=== PATIENT | female | born 1990 | race African-American/Black ===

== ENCOUNTER 2020-11-29 16:22 | Emergency (ER) | payer SELFPAY ==
[~2020-11-29] VITALS: Ht 165.1 cm; Wt 65.0 kg
[2020-11-29 18:11] VITALS: BP 109/50
--- NOTE | 2020-11-29 18:49 | RAD ---
Three-view left wrist dated 11/29/2020. No comparison available. Clinical data indication: Pain after injury. FINDINGS: 3 views left wrist show normal bony alignment. No displaced fracture. No acute osseous or articular a bnormality. No periostitis or bone destruction. IMPRESSION: No acute findings. Electronically signed by: Scooter Silver MD (11/29/2020 6:47 PM) [id number]
--- NOTE | 2020-11-29 19:01 | PHYS DOC ---
Past Medical History Past Medical History: No Pertinent History Past Surgical History: No Surgical History Smoking Status: Never Smoker Alcohol Use: None General Adult EDM: Chief Complaint: WRIST PAIN HPI: HPI: 30 yo F has medical history of PCOS with no routine primary care or STUDENT COUNSELLOR follow-up, presents to the ED with complaints of waking up Sunday morning with left upper extremity arm numbness, shooting pains from her left shoulder to her left hand with dorsal wrist/phalange 1-4 swelling, cannot recall any specific trauma. Is right-hand dominant. States the swelling in her fingers and wrist have decreased but now has localized pain to her dorsal left wrist, worsening with flexion and extension. No prior trauma to this extremity. No history of head or neck injuries, no further neuropathy. Cannot recall if she injured her neck/slept on it wrong. Review of Systems: Review of Systems: Constitutional: Denies fever or chills. [] Eyes: Denies change in visual acuity. [] HENT: Denies nasal congestion or sore throat. [] Respiratory: Denies cough or shortness of breath. [] Cardiovascular: Denies chest pain or edema. [] GI: Denies abdominal pain, nausea, vomiting, bloody stools or diarrhea. [] : Denies dysuria or hematuria Musculoskeletal: Denies back pain or CVA tenderness Integument: Denies crepitus or diaphoresis Neurologic: Denies headache, focal weakness or sensory changes. [] Endocrine: Denies polyuria or polydipsia. [] Lymphatic: Denies swollen glands. [] Psychiatric: Denies depression or anxiety. [] Heart Score: Risk Factors: Risk Factors: DM, Current or recent (<one month) smoker, HTN, HLP, family his tory of CAD, obesity. Risk Scores: Score 0 - 3: 2.5% MACE over next 6 weeks - Discharge Home Score 4 - 6: 20.3% MACE over next 6 weeks - Admit for Clinical Observation Score 7 - 10: 72.7% MACE over next 6 weeks - Early Invasive Strategies Allergies: Allergies: Allergies Coded Allergies Type Severity Reaction Last Updated Verified No Known Drug Allergies 11/29/20 No Physical Exam: PE: Constitutional: Well developed, well nourished, no acute distress, non-toxic appearance. HENT: No midline neck pain, normocephalic, atraumatic, Eyes: EOMI, conjunctiva normal, no discharge. Neck: Normal range of motion, supple, Cardiovascular: S1/2 present, regular rhythm Lungs & Thorax: Speaking in full sentences, bilateral equal chest rise, no tachypnea or increased work of breathing Abdomen: soft, no tenderness, Skin: Warm, dry, cap refill less than 1 second Back: No midline tenderness, Extremities: No tenderness, no cyanosis, no joint swelling or decreased range of motion, 2x3 cm area of swelling over dorsal lateral left wrist with mild erythema, no pain in snuffbox, equal radial pulses, no pain over lunate Neurologic: Alert and oriented X 3, normal motor function, normal sensory function, no focal deficits noted. [] Psychologic: Affect normal, judgement normal, mood normal. [] Current Patient Data: Vital Signs: Vital Signs Date Time Temp Pulse Resp B/P (MAP) Pulse Ox O2 Delivery O2 Flow Rate FiO2 11/29/20 18:11 97.4 75 16 109/50 (69) 99 Room Air 97.4 EKG: EKG: [] Radiology/Procedures: Radiology/Procedures: []IMAGING REPORT Signed PATIENT: FIGUEROA URBANO ACCOUNT: [id number] : 1990 LOCATION: ER AGE: 30 SEX: F EXAM STATUS: REG ER ORD. PHYSICIAN: SCOOTER SHANNON APRN REASON: left wrist pain, swelling x1 day. no recent injury PROCEDURE: WRIST 3V LEFT Three-view left wrist dated 11/29/2020. No comparison available. Clinical data indication: Pain after injury. FINDINGS: 3 views left wrist show normal bony alignment. No displaced fracture. No acute osseous or articular abnormality. No periostitis or bone destruction. IMPRESSION: No acute findings. Electronically signed by: Scooter Mohamud MD (11/29/2020 6:47 PM) [id number] DICTATED and SIGNED BY: SCOOTER MOHAMUD MD DATE: 11/29/20 [id number] 0 Course & Med Decision Making: Course & Med Decision Making Pertinent Labs and Imaging studies reviewed. (See chart for details) Concern for atraumatic dorsal left wrist swelling with mild erythema, concern for early cellulitis, will cover with Keflex. Patient also complained of left upper extremity neuropathic pain that will be treated with Flexeril. Patient afebrile, jqmj-[id number]-[id number] suspicion for avascular necrosis, osteomyelitis or other life or limb threatening processes. Will discharge home with strict ED return precautions were given for paralysis, joint swelling, worsening rash, fever or pain out of proportion. Encouraged urgent outpatient follow-up with PMD and STUDENT COUNSELLOR and orthopedic surgery as an outpatient. Life-threatening processes were considered but are low suspicion at this time, given history, physical exam and ED workup. Pt was educated on all prescription medications and adverse effects. All patient's questions were answered and pt was stable at time of discharge. Life/limb-threatening differential includes but is not limited to, trauma (fracture, dislocation, laceration, compartment syndrome, tendon or ligament injury), neurovascular injury or deficit, infection (osteomyelitis, abscess, cellulitis, septic arthritis, necrotizing fasciitis), deep vein thrombosis, renal/cardiac/liver disease, medication adverse effect, lymphedema/anasarca, vascular insufficiency or malignancy, I spoken with the patient and her caregivers. I explained the patient's condition, diagnoses and treatment plan based on the information available to me at this time. I have answered the patient and her caregiver's questions and addressed any concerns. The patient and her caregivers have a good understanding of patient's diagnosis, condition and treatment plan as can be expected at this point. Vital signs have been stable. Patient's condition is stable and appropriate for discharge from the emergency department. Patient will pursue further outpatient evaluation with primary care physician or other designated or consulting physician as outlined in the discharge instructions. The patient and/or caregivers are agreeable to this plan of care and follow-up instructions have been explained in detail. The patient and/or caregivers have received these instructions in written form and have expressed an understanding of the discharge instructions. The patient and/or caregivers are aware that any significant change of condition or worsening of symptoms should prompt immediate return to this or the closest emergency department or call to 911. Almaz Disclaimer: Almaz Disclaimer: This electronic medical record was generated, in whole or in part, using a voice recognition dictation system. Departure Departure Impression: Primary Impression: Wrist pain, left Additional Impressions: Neuropathy of left upper extremity Cellulitis of left wrist Disposition: 01 DC HOME SELF CARE/HOMELESS Condition: STABLE Referrals: NO PCP (PCP) FOLLOW UP WITH FAMILY MEDICINE: Family Medicine Address: [address] [place] [address] Patient Instructions: Cellulitis, Pain, Neuropathic Additional Instructions: FOLLOW UP WITH ORTHOPEDICS: Orthopaedic Sports Medicine Orthopaedic Surgery [facility] Address: [address] [place], [address] [place] [address] FOLLOW UP WITH STUDENT COUNSELLOR: [facility] Address: [address] [place] [address] EMERGENCY DEPARTMENT GENERAL DISCHARGE INSTRUCTIONS Thank you for coming to [facility] Emergency Department (ED) today and trusting us with you care. We trust that you had a positive experience in our Emergency Department. If you wish to speak to the department management, you may call the Director at [phone]. YOUR FOLLOW UP INSTRUCTIONS ARE FOLLOWS: 1. Do you have a private Doctor? If you do not have a private doctor, please ask for a resource list of physicians or clinics that may be able to assist you with follow up care. 2. The Emergency Physicain has interpreted your x-rays. The X-Ray specialist will also review them. If there is a change in the findings, you will be notified in 48 hours when at all possible. 3. A lab test or culture has been done, your results will be reviewed and you will be notified if you need a change in treatment. ADDITIONAL INSTRUCTIONS AND INFORMATION: 1. Your care today has been supervised by a physician who is specially trained in emergency care. Many problems require more than one evaluation for a complete diagnosis and treatment. We recommend that you schedule your follow up appointment as recommended to ensure complete treatment of you illness or injury. If you are unable to obtain follow up care and continue to have a problem, or if your condition worsens, we recommend that you return to the ED. 2. We are not able to safely determine your condition over the phone nor are we able to give sound medical advice over the phone. For these safety reasons, if you call for medical advice we will ask you to come to the ED for further evaluation. 3. If you have any questions regarding these discharge instructions please call the ED at [phone]. SAFETY INFORMATION: In the interest of safety, wellness, and injury prevention; we encourage you to wear your sealbelt, if you smoke; quite smoking, and we encourage family to use a protective helmet for bicycling and other sporting events that present an increased risk for head injury. IF YOUR SYMPTOMS WORSEN OR NEW SYMPTOMS DEVELOP, OR YOU HAVE CONCERNS ABOUT YOUR CONDITION; OR IF YOUR CONDITION WORSENS WHILE YOU ARE WAITING FOR YOUR FOLLOW UP APPOINTMENT; EITHER CONTACT YOUR PRIMARY CARE DOCTOR, THE PHYSICIAN WHOSE NAME AND NUMBER YOU WERE GIVEN, OR RETURN TO THE ED IMMEDIATELY. Scripts Cyclobenzaprine Hcl (CYCLOBENZAPRINE HCL) 10 Mg Tablet 1 TAB PO TID for 4 Days, #12 TAB Prov: MYA SORIA DO 11/29/20 Cephalexin (CEPHALEXIN) 500 Mg Capsule 1 CAP PO BID for 7 Days, #14 CAP Prov: MYA SORIA DO 11/29/20 MYA SORIA DO Nov 29, 2020 19:01
[2020-11-29] MEDS ORDERED: CEPH500C PO (19:45)
[2020-11-29] MEDS ORDERED: CYCL10TA2 PO (19:45)
== END 2020-11-29 20:02 | disposition home or self-care (01) ==
LOC: ER 16:22
DX: G56.92 Unspecified mononeuropathy of left upper limb (principal); L03.114 Cellulitis of left upper limb
CPT/HCPCS: 73110; 99283

== ENCOUNTER 2021-05-09 17:11 | Emergency (ER) | payer SELFPAY ==
[~2021-05-09] VITALS: Ht 165.1 cm; Wt 130.0 kg
[~2021-05-09 17:11] MED LIST: CEPH500C PO; CYCL10TA2 PO
--- NOTE | 2021-05-09 19:33 | PHYS DOC ---
Past Medical History Past Medical History: Unknown Past Surgical History: No Surgical History Smoking Status: Never Smoker Alcohol Use: Occasionally General Adult EDM: Chief Complaint: SORE THROAT HPI: HPI: Patient is a 30 year old female who presents to the ED today with a sore throat that began today. Patient denies any fever, coughing or congestion. Review of Systems: Review of Systems: Constitutional: Denies fever or chills. [] Eyes: Denies change in visual acuity. [] HENT: Reports sore throat. Denies nasal congestion Respiratory: Denies cough or shortness of breath. [] Cardiovascular: Denies chest pain or edema. [] GI: Denies abdominal pain, nausea, vomiting, bloody stools or diarrhea. [] : Denies dysuria. [] Musculoskeletal: Denies back pain or joint pain. [] Integument: Denies rash. [] Neurologic: Denies headache, focal weakness or sensory changes. [] Psychiatric: Denies depression or anxiety. [] Heart Score: C/O Chest Pain: N/A Risk Factors: Risk Factors: DM, Current or recent (<one month) smoker, HTN, HLP, family history of CAD, obesity. Risk Scores: Score 0 - 3: 2.5% MACE over next 6 weeks - Discharge Home Score 4 - 6: 20.3% MACE over next 6 weeks - Admit for Clinical Observation Score 7 - 10: 72.7% MACE over next 6 weeks - Early Invasive Strategies Allergies: Allergies: Allergies Coded Allergies Type Severity Reaction Last Updated Verified No Known Drug Allergies 11/29/20 No Physical Exam: PE: Constitutional: Well developed, well nourished, no acute distress, non-toxic appearance. [] HENT: Normocephalic, atraumatic, bilateral external ears normal, oropharynx moist, no oral exudates, nose normal. [] Eyes: PERRLA, EOMI, conjunctiva normal, no discharge. [] Neck: Normal range of motion, no tenderness, supple, no stridor. [] Cardiovascular:Heart rate regular rhythm, no murmur [] Lungs & Thorax: Bilateral breath sounds clear to auscultation [] Abdomen: Bowel sounds normal, soft, no tenderness, no masses, no pulsatile masses. [] Skin: Warm, dry, no erythema, no rash. [] Back: No tenderness, no CVA tenderness. [] Extremities: No tenderness, no cyanosis, no clubbing, ROM intact, no edema. [] Neurologic: Alert and oriented X 3, normal motor function, normal sensory function, no focal deficits noted. [] Psychologic: Affect normal, judgement normal, mood normal. [] Current Patient Data: Vital Signs: Vital Signs Date Time Temp Pulse Resp B/P (MAP) Pulse Ox O2 Delivery O2 Flow Rate FiO2 05/09/21 17:55 98.2 67 18 116/66 (83) 99 Room Air 98.2 EKG: EKG: [] Radiology/Procedures: Radiology/Procedures: [] Course & Med Decision Making: Course & Med Decision Making Pertinent Labs and Imaging studies reviewed. (See chart for details) This is a 30-year-old female patient presented to the ED today with sore throat that began today. Negative rapid strep. We will discharge her with prednisone, salt water gargles. Dragon Disclaimer: Dragon Disclaimer: This electronic medical record was generated, in whole or in part, using a voice recognition dictation system. Departure Departure Impression: Primary Impression: Acute pharyngitis Qualified Codes: J02.9 - Acute pharyngitis, unspecified Disposition: HOME / SELF CARE / HOMELESS Condition: STABLE Referrals: UNKNOWN PCP NAME (PCP) SHAYAN PETERSON MD follow up in 1 week if symptoms persist Patient Instructions: Viral Pharyngitis Additional Instructions: You were seen for sore throat, your rapid strep test is negative. Please use salt water gargles. Take the prescribed prednisone for 5 days as ordered. You can take Tylenol/Motrin for pain or fever. Follow-up with your primary care doctor or the provided ENT specialist in 1 week if symptoms continue. Come back to the ED at any point symptoms worsen Scripts Prednisone (PREDNISONE) 50 Mg Tablet 1 TAB PO DAILY, #5 TAB Prov: NAHID SONG APRN 05/09/21 NAHID SONG APRN May 09, 2021 19:33
[2021-05-09] MEDS ORDERED: PRED50TA PO (19:37)
[2021-05-09 19:40] VITALS: BP 112/64
== END 2021-05-09 19:45 | disposition home or self-care (01) ==
LOC: ER 17:11
DX: J02.9 Acute pharyngitis, unspecified (principal)
CPT/HCPCS: 87070; 87880; 99283